=== PATIENT | male | born 1990 | race Caucasian/White ===

== ENCOUNTER 2022-06-10 16:25 | Emergency (ER) | payer BC ==
[2022-06-10 16:46] VITALS: RESP 18; TEMP 97.8
[2022-06-10] MEDS ORDERED: SODIUM CHLORIDE 0.9% 1,000 ML IV STA (17:00)
[2022-06-10] MEDS ORDERED: DEXAMETHASONE SOD PHOSPHATE 10 MG/ML 1 ML VIAL IV STA (17:00)
[2022-06-10] MEDS ORDERED: diphenhydrAMINE 50 MG/ML 1 ML VIAL IVP STA (17:00)
[2022-06-10] MEDS ORDERED: KETOROLAC 15 MG/ML 1 ML VIAL IVP STA (17:00)
[2022-06-10] MEDS ORDERED: PROCHLORPERAZINE INJ 10 MG/2 ML VIAL IVP STA (17:01)
--- NOTE | 2022-06-10 18:26 | ED ---
General Adult HPI - General Chief complaint: Headache Stated complaint: Blurred vision, Dizzy Time Seen by Provider: 06/10/22 16:50 Source: patient, family Mode of arrival: ambulatory Limitations: no limitations - History of Present Illness Initial comments: This is a 31-year-old male with a past medical history including anxiety, hypertension and previous migraine headaches presents emergency Department with a migraine headache. The patient stated that starting at 11 AM, he started to have a circumferential headache associated with lightheadedness and blurry vision. The patient has stated that he was seen in the emergency department for a similar episode on Wednesday at which point he did well. The patient had been on different blood pressure medications over the last several months and has been working with his primary care physician. The patient was concerned because he had some blurry vision today speaking to the emergency department. The patient only uses Excedrin for his migraines. The patient stated that he only had some minor blurry vision but stated that this was his baseline for his migraines. The patient was resting comfortably and was able to answer all questions appropriately. - Related Data Home Medications Medication Instructions Recorded Confirmed Ferrous Sulfate [Feosol] 325 mg PO DAILY 06/08/22 06/10/22 Multivitamins, Thera [Multivitamin 1 tab PO DAILY 06/08/22 06/10/22 (formulary)] Propranolol [Inderal] 20 mg PO DAILY 06/08/22 06/10/22 clonazePAM 2 mg PO DAILY@1700 06/08/22 06/10/22 clonazePAM 4 mg PO QAM 06/08/22 06/10/22 lisinopriL [Zestril] 10 mg PO DAILY 06/08/22 06/10/22 Allergies Allergy/AdvReac Type Severity Reaction Status Date / Time Penicillins Allergy Anaphylaxis Verified 06/10/22 18:02 & Full Body Hives Review of Systems ROS Statement: Those systems with pertinent positive or pertinent negative responses have been documented in the HPI. ROS Other: All systems not noted in ROS Statement are negative. Past Medical History Past Medical History: Hypertension History of Any Multi-Drug Resistant Organisms: None Reported Past Surgical History: Hernia Repair Past Psychological History: ADD/ADHD, Anxiety Smoking Status: Current every day smoker Past Alcohol Use History: Rare Past Drug Use History: Marijuana General Exam Limitations: no limitations General appearance: alert, in no apparent distress Head exam: Present: atraumatic, normocephalic Eye exam: Present: normal appearance, PERRL, EOMI Pupils: Present: normal accommodation ENT exam: Present: normal exam, normal oropharynx, mucous membranes moist Neck exam: Present: normal inspection, full ROM Respiratory exam: Present: normal lung sounds bilaterally Cardiovascular Exam: Present: regular rate, normal rhythm, normal heart sounds GI/Abdominal exam: Present: soft, normal bowel sounds Extremities exam: Present: normal inspection, full ROM Back exam: Present: normal inspection, full ROM Neurological exam: Present: alert, oriented X3, CN II-XII intact, normal gait Psychiatric exam: Present: normal affect, normal mood Skin exam: Present: warm, dry, intact Course Vital Signs 06/10/22 06/10/22 16:39 19:26 Temperature 97.8 F Pulse Rate 67 51 L Respiratory 18 18 Rate Blood Pressure 182/96 144/91 O2 Sat by Pulse 97 97 Oximetry Medical Decision Making - Medical Decision Making The patient was seen and evaluated numerous department. Physical exam, the patient was resting in bed without any acute distress. Vital signs on admission were stable and within normal limits. The patient was mildly hypertensive however was resting comfortably. Due to the nature of the patient's headache the setting of the patient returning to the emergency department after a workup was performed to Wednesday, no further imaging was obtained at this time. The patient did receive a headache cocktail including Toradol, Decadron, Compazine and Benadryl as well as 1 L bolus any fluid. The patient was able to rest complaining emergency department and on reevaluation had resolution of his headache. The patient was advised to follow-up with his in home sales representative for continued management of his significant hypertension. The patient's blood pressure did stabilize on repeat in the emergency department. The patient was deemed stable for discharge. The patient was advised to follow-up [facility] get worsening symptoms develop his primary care physician for continued headache treatment. The patient was agreeable to this and both his and himself at all depressions answered appropriately. The patient was discharged home in stable condition. Critical Care Time Critical Care Time: Yes Total Critical Care Time: 32 Disposition Clinical Impression: Headache, Hypertension Disposition: HOME SELF-CARE Condition: Stable Instructions (If sedation given, give patient instructions): Acute Headache (ED) Is patient prescribed a controlled substance at d/c from ED?: No Referrals: Kurtis Meyer DO [Primary Care Provider] - 1-2 days Time of Disposition: 15:30
[2022-06-10 19:27] VITALS: BP 144/91; PULSE 51
== END 2022-06-10 19:49 | disposition home or self-care (01) ==
LOC: EC 16:25
DX: G43.909 Migraine, unspecified, not intractable, without status migrainosus (principal); I10 Essential (primary) hypertension; F41.9 Anxiety disorder, unspecified; F17.200 Nicotine dependence, unspecified, uncomplicated; F12.90 Cannabis use, unspecified, uncomplicated; Z88.0 Allergy status to penicillin
CPT/HCPCS: 99284; 96374; 96375 ×3; 96361; J1200; J0780; J1100; J1885

== ENCOUNTER 2022-08-13 08:54 | Emergency (ER) | payer OTHER ==
[2022-08-13] MEDS ORDERED: NITROGLYCERIN OINT 1 INCH/GM PACKET TOPICAL STA (09:18)
[2022-08-13] MEDS ORDERED: ASPIRIN 81 MG PO STA (09:18)
[2022-08-13] MEDS ORDERED: LORazepam 2 MG/ML INJ IV STA (09:19)
--- NOTE | 2022-08-13 09:21 | ED ---
General Adult HPI - General Chief complaint: Chest Pain Stated complaint: Chest pain Time Seen by Provider: 08/13/22 09:13 Source: patient, RN notes reviewed Mode of arrival: ambulatory Limitations: no limitations - History of Present Illness Initial comments: Patient is a pleasant 31-year-old male presenting to the emergency department with concerns of chest discomfort. Onset of symptoms was when he woke this morning around 6. Patient normally is on clonazepam daily however has been off for the past 3 days secondary to difficulty refilling it. Patient has had chest discomfort similar to this approximately 3 or 4 times. Patient does have some minimal associated dyspnea. Symptoms do worsen with deep breath. There is some radiation towards the left arm. No nausea. No diaphoresis. - Related Data Home Medications Medication Instructions Recorded Confirmed Ferrous Sulfate [Feosol] 325 mg PO DAILY 06/08/22 08/13/22 Multivitamins, Thera [Multivitamin 1 tab PO DAILY 06/08/22 08/13/22 (formulary)] Propranolol [Inderal] 20 mg PO BID 06/08/22 08/13/22 clonazePAM 2 mg PO TID PRN 06/08/22 08/13/22 lisinopriL [Zestril] 10 mg PO DAILY 06/08/22 08/13/22 SUMAtriptan succinate [Imitrex] 25 mg PO BID PRN 08/13/22 08/13/22 Topiramate [Topamax] 25 mg PO DAILY 08/13/22 08/13/22 Allergies Allergy/AdvReac Type Severity Reaction Status Date / Time Penicillins Allergy Anaphylaxis Verified 08/13/22 11:01 & Full Body Hives Review of Systems ROS Statement: Those systems with pertinent positive or pertinent negative responses have been documented in the HPI. ROS Other: All systems not noted in ROS Statement are negative. Constitutional: Denies: fever Eyes: Denies: eye pain ENT: Denies: ear pain Respiratory: Denies: cough Cardiovascular: Reports: as per HPI, chest pain Endocrine: Denies: fatigue Gastrointestinal: Denies: abdominal pain Genitourinary: Denies: dysuria Musculoskeletal: Denies: back pain Skin: Denies: rash Neurological: Denies: weakness Past Medical History Past Medical History: Hypertension History of Any Multi-Drug Resistant Organisms: None Reported Past Surgical History: Hernia Repair Past Psychological History: ADD/ADHD, Anxiety Smoking Status: Current every day smoker Past Alcohol Use History: Rare Past Drug Use History: Marijuana General Exam Limitations: no limitations General appearance: alert, in no apparent distress Head exam: Present: normocephalic Eye exam: Present: normal appearance Neck exam: Present: normal inspection Respiratory exam: Present: normal lung sounds bilaterally Cardiovascular Exam: Present: regular rate, normal rhythm, normal heart sounds Expanded Peripheral pulses: 2+: Radial (R), Radial (L), Posterior Tibialis (R), Posterior Tibialis (L), Dorsalis Pedis (R), Dorsalis Pedis (L) GI/Abdominal exam: Present: soft. Absent: tenderness Extremities exam: Present: normal inspection. Absent: pedal edema, calf tenderness Neurological exam: Present: alert Psychiatric exam: Present: normal affect, normal mood Skin exam: Present: normal color Course Vital Signs 08/13/22 08/13/22 08/13/22 09:07 10:11 10:36 Temperature 98.5 F Pulse Rate 66 51 L Respiratory 20 18 Rate Blood Pressure 184/129 141/97 Blood Pressure 147/92 [Left Arm] Blood Pressure 144/90 [Right Arm] O2 Sat by Pulse 99 100 Oximetry EKG Findings - EKG Results: EKG: interpreted by ERMD, sinus rhythm, normal axis, normal QRS, normal ST/T Medical Decision Making - Medical Decision Making Was pt. sent in by a medical professional or institution (SIRISHA Swanson, MID LEVEL GAME DESIGNER, urgent care, hospital, or prison...) When possible be specific @ -No Did you speak to anyone other than the patient for history (EMS, parent, family, police, friend...)? What history was obtained from this source @ -No Did you review nursing and triage notes (agree or disagree)? Why? @ -I reviewed and agree with nursing and triage notes Were old charts reviewed (outside hosp., previous admission, EMS record, old EKG, old radiological studies, urgent care reports/EKG's, prison records)? Report findings @ -No old charts were reviewed Differential Diagnosis (chest pain, altered mental status, abdominal pain women, abdominal pain men, vaginal bleeding, weakness, fever, dyspnea, syncope, headache, dizziness, GI bleed, back pain, seizure, CVA, palpatations, mental health)? @ -Differential Chest Pain: Stable Angina, Unstable Angina, STEMI, NSTEMI Aortic Dissection, Pneumothorax, Musculoskeletal, Esophageal Spasm GERD, Cholecystitis, Pancreatitis, Zoster, this is not meant to be an all-inclusive list. EKG interpreted by me (3pts min.). @ -As above X-rays interpreted by me (1pt min.). @ -Chest x-ray shows no acute process CT interpreted by me (1pt min.). @ -None done U/S interpreted by me (1pt. min.). @ -None done What testing was considered but not performed or refused? (CT, X-rays, U/S, labs)? Why? @ -None What meds were considered but not given or refused? Why? @ -None Did you discuss the management of the patient with other professionals (professionals i.e. , PA, MID LEVEL GAME DESIGNER, lab, RT, psych nurse, social problems specialist, pre press manager, teacher, security flex utility officer, gearcase assembler)? Give summary @ -No Was smoking cessation discussed for >3mins.? @ -No Was critical care preformed (if so, how long)? @ -No Were there social determinants of health that impacted care today? How? (Homelessness, low income, unemployed, alcoholism, drug addiction, transportation, low edu. Level, literacy, decrease access to med. care, long term, rehab)? @ -No Was there de-escalation of care discussed even if they declined (Discuss DNR or withdrawal of care, Hospice)? DNR status @ -No What co-morbidities impacted this encounter? (DM, HTN, Smoking, COPD, CAD, Cancer, CVA, ARF, Chemo, Hep., AIDS, mental health diagnosis, sleep apnea, morbid obesity)? @ -None Was patient admitted / discharged? Hospital course, mention meds given and route, prescriptions, significant lab abnormalities, going to OR and other pertinent info. @ -Patient reevaluated and resting comfortably in bed. Patient symptom-free following Ativan and significant improvement of blood pressure. Patient updated on results and need for follow-up as well as to call regarding his prescription. Undiagnosed new problem with uncertain prognosis? @ -No Drug Therapy requiring intensive monitoring for toxicity (Heparin, Nitro, Insulin, Cardizem)? @ -No Were any procedures done? @ -No Diagnosis/symptom? @ -Anxiety, chest pain, hypertension Acute, or Chronic, or Acute on Chronic? @ -Acute on chronic Uncomplicated (without systemic symptoms) or Complicated (systemic symptoms)? @ -Uncomplicated Side effects of treatment? @ -No Exacerbation, Progression, or Severe Exacerbation? @ -Exacerbation Poses a threat to life or bodily function? How? (Chest pain, [place], [place], pneumonia, PE, COPD, DKA, ARF, appy, cholecystitis, CVA, Diverticulitis, Homicidal, Suicidal, threat to staff... and all critical care pts) @ -No - Lab Data Result diagrams: 08/13/22 09:08/13/22 09: Lab Results 08/13/22 08/13/22 08/13/22 Range/Units : 09:17 04: WBC 7.3 (3.8-10.6) k/uL RBC 5.43 (4.30-5.90) m/uL Hgb 14.4 (13.0-17.5) gm/dL Hct 41.7 (39.0-53.0) % MCV 76.7 L (80.0-100.0) fL MCH 26.4 (25.0-35.0) pg MCHC 34.5 (31.0-37.0) g/dL RDW 16.7 H (11.5-15.5) % Plt Count 152 (150-450) k/uL MPV 11.0 Neutrophils % 59 % Lymphocytes % 32 % Monocytes % 5 % Eosinophils % 2 % Basophils % 1 % Neutrophils # 4.3 (1.3-7.7) k/uL Lymphocytes # 2.3 (1.0-4.8) k/uL Monocytes # 0.4 (0-1.0) k/uL Eosinophils # 0.1 (0-0.7) k/uL Basophils # 0.1 (0-0.2) k/uL Anisocytosis Slight Microcytosis Slight PT 9.9 (9.0-12.0) sec INR 0.9 (<1.2) APTT 26.3 (22.0-30.0) sec D-Dimer <0.17 (<0.60) mg/L FEU Sodium 142 (137-145) mmol/L Potassium 3.8 (3.5-5.1) mmol/L Chloride 112 H (98-107) mmol/L Carbon Dioxide 20 L (22-30) mmol/L Anion Gap 10 mmol/L BUN 12 (9-20) mg/dL Creatinine 0.58 L (0.66-1.25) mg/dL Est GFR (CKD-EPI)AfAm >90 (>60 ml/min/1.73 sqM) Est GFR (CKD-EPI)NonAf >90 (>60 ml/min/1.73 sqM) Glucose 98 (74-99) mg/dL Calcium 9.0 (8.4-10.2) mg/dL Magnesium 1.9 (1.6-2.3) mg/dL Total Bilirubin 0.4 (0.2-1.3) mg/dL AST 34 (17-59) U/L ALT 36 (4-49) U/L Alkaline Phosphatase 120 (38-126) U/L Troponin I (0.000-0.034) ng/mL Total Protein 7.3 (6.3-8.2) g/dL Albumin 4.5 (3.5-5.0) g/dL 08/13/22 Range/Units 09:23 WBC (3.8-10.6) k/uL RBC (4.30-5.90) m/uL Hgb (13.0-17.5) gm/dL Hct (39.0-53.0) % MCV (80.0-100.0) fL MCH (25.0-35.0) pg MCHC (31.0-37.0) g/dL RDW (11.5-15.5) % Plt Count (150-450) k/uL MPV Neutrophils % % Lymphocytes % % Monocytes % % Eosinophils % % Basophils % % Neutrophils # (1.3-7.7) k/uL Lymphocytes # (1.0-4.8) k/uL Monocytes # (0-1.0) k/uL Eosinophils # (0-0.7) k/uL Basophils # (0-0.2) k/uL Anisocytosis Microcytosis PT (9.0-12.0) sec INR (<1.2) APTT (22.0-30.0) sec D-Dimer (<0.60) mg/L FEU Sodium (137-145) mmol/L Potassium (3.5-5.1) mmol/L Chloride (98-107) mmol/L Carbon Dioxide (22-30) mmol/L Anion Gap mmol/L BUN (9-20) mg/dL Creatinine (0.66-1.25) mg/dL Est GFR (CKD-EPI)AfAm (>60 ml/min/1.73 sqM) Est GFR (CKD-EPI)NonAf (>60 ml/min/1.73 sqM) Glucose (74-99) mg/dL Calcium (8.4-10.2) mg/dL Magnesium (1.6-2.3) mg/dL Total Bilirubin (0.2-1.3) mg/dL AST (17-59) U/L ALT (4-49) U/L Alkaline Phosphatase (38-126) U/L Troponin I <0.012 (0.000-0.034) ng/mL Total Protein (6.3-8.2) g/dL Albumin (3.5-5.0) g/dL Disposition Clinical Impression: Chest pain, Anxiety, Hypertension Disposition: HOME SELF-CARE Condition: Stable Instructions (If sedation given, give patient instructions): Chest Pain (ED), Anxiety (ED), Hypertension (ED) Additional Instructions: Please do follow-up with your primary care physician in the next one to 2 days for recheck. Return for chest pain, difficulty breathing, increased blood press ure, worsening or changing symptoms or any other concerns. Please have your primary care physician ensure you're medications have been ordered. Is patient prescribed a controlled substance at d/c from ED?: No Referrals: Kurtis Meyer DO [Primary Care Provider] - 1-2 days Time of Disposition: 11:36
[2022-08-13 09:43] LABS: ALT 36 U/L (4-49); AST 34 U/L (17-59); African American GFR (CKD) >90 (>60 ml/min/1.73 sqM); Albumin 4.5 g/dL (3.5-5.0); Alkaline Phosphatase 120 U/L (38-126); Anion Gap 10 mmol/L; Blood Urea Nitrogen 12 mg/dL (9-20); Carbon Dioxide 20 mmol/L (22-30); Chloride 112 mmol/L (98-107); Glucose 98 mg/dL (74-99); Magnesium 1.9 mg/dL (1.6-2.3); Non-African American GFR(CKD) >90 (>60 ml/min/1.73 sqM); Potassium 3.8 mmol/L (3.5-5.1); Sodium 142 mmol/L (137-145); Total Bilirubin 0.4 mg/dL (0.2-1.3); Total Protein 7.3 g/dL (6.3-8.2)
[2022-08-13 09:46] LABS: Anisocytosis Slight; Basophils # (A) 0.1 k/uL (0-0.2); Basophils % (A) 1 %; Eosinophils # (A) 0.1 k/uL (0-0.7); Eosinophils % (A) 2 %; HCT 41.7 % (39.0-53.0); HGB 14.4 gm/dL (13.0-17.5); Lymphocytes # (A) 2.3 k/uL (1.0-4.8); Lymphocytes % (A) 32 %; MCH 26.4 pg (25.0-35.0); MCHC 34.5 g/dL (31.0-37.0); MCV 76.7 fL (80.0-100.0); Microcytosis Slight; Monocytes # (A) 0.4 k/uL (0-1.0); Monocytes % (A) 5 %; Neutrophils # (A) 4.3 k/uL (1.3-7.7); Neutrophils % (A) 59 %; Platelet Count 152 k/uL (150-450); RBC 5.43 m/uL (4.30-5.90); RDW 16.7 % (11.5-15.5); WBC 7.3 k/uL (3.8-10.6)
--- NOTE | 2022-08-13 09:46 | XR ---
EXAMINATION TYPE: XR chest 2V DATE OF EXAM: 08/13/2022 COMPARISON: None INDICATION: Chest pain TECHNIQUE: Frontal and lateral views of the chest are obtained. FINDINGS: The heart size is normal. The pulmonary vasculature is normal. The lungs are clear. IMPRESSION: 1. No acute pulmonary process.
[2022-08-13 09:59] LABS: INR 0.9 (<1.2); Partial Thromboplastin Time 26.3 sec (22.0-30.0); Prothrombin Time 9.9 sec (9.0-12.0)
[2022-08-13 10:30] VITALS: RESP 18
[2022-08-13 12:05] VITALS: BP 138/88; PULSE 60; TEMP 98.2
== END 2022-08-13 12:07 | disposition home or self-care (01) ==
LOC: EC 08:54
DX: R07.9 Chest pain, unspecified (principal); F41.9 Anxiety disorder, unspecified; I10 Essential (primary) hypertension; F17.200 Nicotine dependence, unspecified, uncomplicated; F12.90 Cannabis use, unspecified, uncomplicated; Z88.0 Allergy status to penicillin; Z79.899 Other long term (current) drug therapy
CPT/HCPCS: 36415; 93005; 85379; 80053; 83735; 84484; 85025; 85610; 85730; 71046; 99285; 96374; J2060

== ENCOUNTER → 2022-10-21 | Outpatient (CLI) | payer MEDICAID ==
--- NOTE | 2022-10-22 06:22 | MR ---
EXAMINATION TYPE: MR brain wo/w con DATE OF EXAM: 10/21/2022 COMPARISON: NONE HISTORY: Migraines TECHNIQUE: Multiplanar, multisequence images of the brain and brainstem is performed without and with IV contras t, utilizing 6.5 mL intravenous Gadavist . FINDINGS: Diffusion weighted images demonstrate no evidence of a recent infarct or other diffusion ab normality. There is no extra-axial fluid collection or significant white matter signal abnormality. The ventricular system and cisternal spaces are normal in size and appearance. The brain volume is age appropriate. Midline structures demonstrate normal morphology. The craniocervical junction appears within normal limits. Post contrast images demonstrate no abnormal enhancement. The dural venous sinuses appear pa tent. Mild mucosal thickening inferior maxillary and ethmoid sinuses. Globes are intact bilaterally. Nasal septum is deviated to right of midline. IMPRESSION: Mild to minimal chronic paranasal sinus disease.
== END | disposition home or self-care (01) ==
LOC: RADMRIMAIN 21:00
PROVIDERS: ATTEND Family Medicine
DX: J32.8 Other chronic sinusitis (principal); G43.109 Migraine with aura, not intractable, without status migrainosus
CPT/HCPCS: 70553; A9585

== ENCOUNTER 2022-10-26 17:16 | Emergency (ER) | payer MEDICAID ==
[2022-10-26 17:49] VITALS: PULSE 77; RESP 20; TEMP 97.8
--- NOTE | 2022-10-26 18:06 | ED ---
General Adult HPI - General Chief complaint: Wound/Laceration Stated complaint: rt finger laceration Time Seen by Provider: 10/26/22 17:58 Source: patient Mode of arrival: ambulatory Limitations: no limitations - History of Present Illness Initial comments: Patient is a 31-year-old male who presents to the emergency department with cut on right fifth finger. Patient states he cut it while working on a car today. He denies any pain No issues with movement. Last tetanus in 2005. - Related Data Home Medications Medication Instructions Recorded Confirmed Ferrous Sulfate [Feosol] 325 mg PO DAILY 06/08/22 08/13/22 Multivitamins, Thera [Multivitamin 1 tab PO DAILY 06/08/22 08/13/22 (formulary)] Propranolol [Inderal] 20 mg PO BID 06/08/22 08/13/22 clonazePAM 2 mg PO TID PRN 06/08/22 08/13/22 lisinopriL [Zestril] 10 mg PO DAILY 06/08/22 08/13/22 SUMAtriptan succinate [Imitrex] 25 mg PO BID PRN 08/13/22 08/13/22 Topiramate [Topamax] 25 mg PO DAILY 08/13/22 08/13/22 Allergies Allergy/AdvReac Type Severity Reaction Status Date / Time Penicillins Allergy Anaphylaxis Verified 10/26/22 17:49 & Full Body Hives Review of Systems ROS Statement: Those systems with pertinent positive or pertinent negative responses have been documented in the HPI. ROS Other: All systems not noted in ROS Statement are negative. Past Medical History Past Medical History: Hypertension History of Any Multi-Drug Resistant Organisms: None Reported Past Surgical History: Hernia Repair Past Psychological History: ADD/ADHD, Anxiety Smoking Status: Current every day smoker Past Alcohol Use History: Rare Past Drug Use History: Marijuana General Exam Limitations: no limitations General appearance: alert, in no apparent distress Head exam: Present: atraumatic, normocephalic, normal inspection Respiratory exam: Present: normal lung sounds bilaterally. Absent: respiratory distress, wheezes, rales, rhonchi, stridor Cardiovascular Exam: Present: regular rate, normal rhythm, normal heart sounds. Absent: systolic murmur, diastolic murmur, rubs, gallop, clicks Neurological exam: Present: alert, oriented X3, CN II-XII intact Psychiatric exam: Present: normal affect, normal mood Skin exam: Present: warm, dry, intact, normal color, other (Abrasion to right pinky finger over PIP joint. No laceration. Capillary refill < 2 seconds. Full range of motion. Sensation intact). Absent: rash Course Vital Signs 10/26/22 10/26/22 10/26/22 17:47 18:09 18:17 Temperature 97.8 F Pulse Rate 77 Respiratory 20 Rate Blood Pressure 170/103 181/111 166/120 O2 Sat by Pulse 97 Oximetry Medical Decision Making - Medical Decision Making Was pt. sent in by a medical professional or institution (, SIRISHA, BUSINESS SYSTEMS ARCHITECT, urgent care, hospital, or halfway...) When possible be specific @ -[No] Did you speak to anyone other than the patient for history (EMS, parent, family, police, friend...)? What history was obtained from this source @ -[No] Did you review nursing and triage notes (agree or disagree)? Why? @ -[I reviewed and agree with nursing and triage notes] Were old charts reviewed (outside hosp., previous admission, EMS record, old EKG, old radiological studies, urgent care reports/EKG's, halfway records)? Report findings @ -[No old charts were reviewed] Differential Diagnosis (chest pain, altered mental status, abdominal pain women, abdominal pain men, vaginal bleeding, weakness, fever, dyspnea, syncope, headache, dizziness, GI bleed, back pain, seizure, CVA, palpatations, mental health)? @ -Abrasion, laceration, fracture EKG interpreted by me (3pts min.). @ -[As above] X-rays interpreted by me (1pt min.). @ -[None done] CT interpreted by me (1pt min.). @ -[None done] U/S interpreted by me (1pt. min.). @ -[None done] What testing was considered but not performed or refused? (CT, X-rays, U/S, labs)? Why? @ -[None] What meds were considered but not given or refused? Why? @ -[None] Did you discuss the management of the patient with other professionals (professionals i.e. SIRISHA Swanson, BUSINESS SYSTEMS ARCHITECT, lab, RT, psych nurse, social work case manager, supervisor photocomposition, teacher, community resource officer, special education case manager)? Give summary @ -[No] Was smoking cessation discussed for >3mins.? @ -[No] Was critical care preformed (if so, how long)? @ -[No] Were there social determinants of health that impacted care today? How? (Homelessness, low income, unemployed, alcoholism, drug addiction, transportation, low edu. Level, literacy, decrease access to med. care, long-term, rehab)? @ -[No] Was there de-escalation of care discussed even if they declined (Discuss DNR or withdrawal of care, Hospice)? DNR status @ -[No] What co-morbidities impacted this encounter? (DM, HTN, Smoking, COPD, CAD, Cancer, CVA, ARF, Chemo, Hep., AIDS, mental health diagnosis, sleep apnea, morbid obesity)? @ -[None] Was patient admitted / discharged? Hospital course, mention meds given and route, prescriptions, significant lab abnormalities, going to OR and other pertinent info. @ -Patient presenting for evaluation of cut on right pinky finger. There is no laceration. Closure is not indicated. Tetanus updated. Patient remained hypertensive during his visit. Patient has history of hypertension, currently on Lopressor, atenolol, clonidine. States he has been taking his medication as directed. Patient states he has history of white coat hypertension. States his anxiety makes his blood pressure go up and he is currently feeling anxious. He denies chest pain, shortness of breath, headache. He checks his blood pressure on which is usually in the 150s/90s. Patient to continue checking blood pressure home and follow up with his primary care provider. Wound education discussed in detail Undiagnosed new problem with uncertain prognosis? @ -[No] Drug Therapy requiring intensive monitoring for toxicity (Heparin, Nitro, Insulin, Cardizem)? @ -[No] Were any procedures done? @ -[No] Diagnosis/symptom? @ -[Abrasion, high blood pressure Acute, or Chronic, or Acute on Chronic? @ -Acute Uncomplicated (without systemic symptoms) or Complicated (systemic symptoms)? @ -Uncomplicated Side effects of treatment? @ -[No] Exacerbation, Progression, or Severe Exacerbation? @ -[No] Poses a threat to life or bodily function? How? (Chest pain, [place], [place], pneumonia, PE, COPD, DKA, ARF, appy, cholecystitis, CVA, Diverticulitis, Homicidal, Suicidal, threat to staff... and all critical care pts) @ -[No] Dr. Marion is my attending Disposition Clinical Impression: Abrasion, High blood pressure Disposition: HOME SELF-CARE Condition: Good Instructions (If sedation given, give patient instructions): Abrasion (ED) Additional Instructions: Leave wound uncovered. Keep wound clean and dry. Wash with a mild soap. Take Tylenol or anti-inflammatories such as Motrin for pain. Follow-up with primary care provider in 1-2 days. Please keep checking blood pressure at home and discuss this with primary care provider as your blood pressure was elevated in the emergency department today. Report back to the emergency department if you experience new, concerning, or worsening symptoms. Is patient prescribed a controlled substance at d/c from ED?: No Referrals: Kurtis Meyer DO [Primary Care Provider] - 1-2 days
[2022-10-26] MEDS ORDERED: DIPH,PERTUS(ACELL)TETVAC-LF 0.5 ML VIAL IM ONE (18:07)
[2022-10-26 18:20] VITALS: BP 166/120
== END 2022-10-26 18:25 | disposition home or self-care (01) ==
LOC: EC 17:16
DX: S60.416A Abrasion of right little finger, initial encounter (principal); I10 Essential (primary) hypertension; F17.200 Nicotine dependence, unspecified, uncomplicated; F12.90 Cannabis use, unspecified, uncomplicated; Z23 Encounter for immunization; Z88.0 Allergy status to penicillin; Z79.899 Other long term (current) drug therapy; W26.8XXA Contact with other sharp object(s), not elsewhere classified, initial encounter
CPT/HCPCS: 90471; 90715; 99282

== ENCOUNTER 2023-01-15 02:11 | Emergency (ER) | payer MEDICAID ==
[2023-01-15 03:26] LABS: ALT 20 U/L (4-49); AST 27 U/L (17-59); African American GFR (CKD) >90 (>60 ml/min/1.73 sqM); Albumin 4.1 g/dL (3.5-5.0); Alkaline Phosphatase 101 U/L (38-126); Amylase 53 U/L (30-110); Anion Gap 9 mmol/L; Blood Urea Nitrogen 11 mg/dL (9-20); Calcium 9.1 mg/dL (8.4-10.2); Carbon Dioxide 20 mmol/L (22-30); Chloride 112 mmol/L (98-107); Glucose 117 mg/dL (74-99); Lipase 78 U/L (23-300); Non-African American GFR(CKD) >90 (>60 ml/min/1.73 sqM); Potassium 3.6 mmol/L (3.5-5.1); Sodium 141 mmol/L (137-145); Total Bilirubin 0.5 mg/dL (0.2-1.3); Total Protein 6.9 g/dL (6.3-8.2)
[2023-01-15 03:31] LABS: Basophils % (A) 0 %; Eosinophils # (A) 0.2 k/uL (0-0.7); Eosinophils % (A) 3 %; Lymphocytes # (A) 2.8 k/uL (1.0-4.8); Lymphocytes % (A) 36 %; MCH 29.3 pg (25.0-35.0); MCHC 34.8 g/dL (31.0-37.0); MCV 84.1 fL (80.0-100.0); Mean Platelet Volume 10.6; Monocytes # (A) 0.5 k/uL (0-1.0); Monocytes % (A) 6 %; Neutrophils # (A) 4.3 k/uL (1.3-7.7); Neutrophils % (A) 54 %; Platelet Count 143 k/uL (150-450); RBC 5.47 m/uL (4.30-5.90)
--- NOTE | 2023-01-15 04:51 | XR ---
EXAM: XR Abdomen, 1 View CLINICAL HISTORY: ITS.REASON XR Reason: abdominal pain TECHNIQUE: Frontal supine view of the abdomen/pelvis. COMPARISON: No relevant prior studies available. FINDINGS: Gastrointestinal tract: No dilation. Increased stool burden Bones/joints: No acute fracture. No dislocation. IMPRESSION: No acute findings.
[2023-01-15] MEDS ORDERED: ONDANSETRON 4 MG/2 ML VIAL IVP STA (05:20)
[2023-01-15] MEDS ORDERED: MORPHINE SULFATE 4 MG/ML SYRINGE IVP STA (05:20)
--- NOTE | 2023-01-15 07:13 | CT ---
EXAMINATION TYPE: CT abdomen pelvis w con DATE OF EXAM: 01/15/2023 COMPARISON: None HISTORY: Right upper quadrant pain CONTRAST: CT scan of the abdomen and pelvis is performed without Oral Contrast and with IV Contrast, patient in jected with 100 mL of Isovue 300. FINDINGS: LUNG BASES-: No visible nodule. No infiltrate. LIVER/GB: No calcified gallstones. Mild hepatomegaly with underlying hepatic steatosis. No space o ccupying hepatic lesion. Biliary tree is of normal caliber. PANCREAS: No inflammation. No distinct mass. SPLEEN: No splenic enlargement. No lesion seen. ADRENALS: No nodule. No thickening. KIDNEYS/BLADDER: No hydronephrosis. No nephrolithiasis. No distinct renal mass. Urinary bladder g rossly unremarkable. BOWEL: Normal appendix. Normal bowel caliber. No inflammation. GENITAL ORGANS: No gross abnormality. LYMPH NODES: No greater than 1cm abdominal or pelvic lymph nodes are appreciated. AORTA: No significant abnormality. OSSEOUS STRUCTURES: No significant abnormality is seen. OTHER: No significant additional abnormality is seen. IMPRESSION: 1. No significant abnormality to account for the patient's symptoms. 2. Hepatomegaly with mild hepatic steatosis.
[2023-01-15 07:23] LABS: Appearance,Urine Clear (Clear); Bilirubin,Urine Negative (Negative); Blood,Urine Negative (Negative); Color,Urine Light Yellow; Glucose,Urine (UA) Negative (Negative); Ketones,Urine Negative (Negative); Leukocyte Esterase,Urine Negative (Negative); Nitrite,Urine Negative (Negative); Protein,Urine Negative (Negative); Urobilinogen,Urine <2.0 mg/dL (<2.0)
[2023-01-15 07:31] LABS: Specific Gravity,Urine >1.050 (1.001-1.035)
--- NOTE | 2023-01-15 08:02 | ED ---
General Adult HPI - General Source: patient Mode of arrival: ambulatory Limitations: no limitations <Cristal Schuler - Last Filed: 01/15/23 07:57> <Stepan Crowe - Last Filed: 01/15/23 09:17> - General Chief complaint: Abdominal Pain Stated complaint: Abdominal Pain Time Seen by Provider: 01/15/23 02:30 - History of Present Illness Initial comments: 38-year-old male with past medical history of hypertension who presents to emergency room with right upper quadrant pain. States he was at work when his pain began. He reports that he can't move, bend, cough without having significant pain. He denies any inciting trauma. No history of similar pain in the past. He has associated nausea without vomiting. Pain is constant and 8 out of 10. Has not taken anything for the pain yet. No peptic ulcer history. Denies diarrhea, constant, black or bloody stools. No urinary complaints. No history of abdominal surgeries. No other alleviating, precipitating or modifying factors (rCistal Schuler) - Related Data Home Medications Medication Instructions Recorded Confirmed Ferrous Sulfate [Feosol] 325 mg PO DAILY 06/08/22 08/13/22 Multivitamins, Thera [Multivitamin 1 tab PO DAILY 06/08/22 08/13/22 (formulary)] Propranolol [Inderal] 20 mg PO BID 06/08/22 08/13/22 clonazePAM 2 mg PO TID PRN 06/08/22 08/13/22 lisinopriL [Zestril] 10 mg PO DAILY 06/08/22 08/13/22 SUMAtriptan succinate [Imitrex] 25 mg PO BID PRN 08/13/22 08/13/22 Topiramate [Topamax] 25 mg PO DAILY 08/13/22 08/13/22 Previous Rx's Medication Instructions Recorded HYDROcodone/APAP 5-325MG [Drain 1 tab PO Q6HR PRN 3 Days #12 tab 01/15/23 5-325] Allergies Allergy/AdvReac Type Severity Reaction Status Date / Time Penicillins Allergy Anaphylaxis Verified 01/15/23 02:28 & Full Body Hives Review of Systems ROS Other: All systems not noted in ROS Statement are negative. <Cristal Schuler - Last Filed: 01/15/23 07:57> ROS Other: All systems not noted in ROS Statement are negative. <Stepan Crowe - Last Filed: 01/15/23 09:17> ROS Statement: Those systems with pertinent positive or pertinent negative responses have been documented in the HPI. Past Medical History Past Medical History: Hypertension History of Any Multi-Drug Resistant Organisms: None Reported Past Surgical History: Hernia Repair Past Psychological History: ADD/ADHD, Anxiety Smoking Status: Current every day smoker Past Alcohol Use History: Rare Past Drug Use History: Marijuana <Cristal Schuler - Last Filed: 01/15/23 07:57> General Exam Limitations: no limitations General appearance: alert, in no apparent distress Head exam: Present: atraumatic, normocephalic, normal inspection Eye exam: Present: normal appearance, PERRL, EOMI. Absent: scleral icterus, conjunctival injection, periorbital swelling ENT exam: Present: normal exam, mucous membranes moist Neck exam: Present: normal inspection. Absent: tenderness, meningismus, lymphadenopathy Respiratory exam: Present: normal lung sounds bilaterally. Absent: respiratory distress, wheezes, rales, rhonchi, stridor Cardiovascular Exam: Present: regular rate, normal rhythm, normal heart sounds. Absent: systolic murmur, diastolic murmur, rubs, gallop, clicks GI/Abdominal exam: Present: soft, tenderness (Right upper quadrant), normal bowel sounds. Absent: distended, guarding, rebound, rigid Extremities exam: Present: normal inspection, full ROM, normal capillary refill. Absent: tenderness, pedal edema, joint swelling, calf tenderness Back exam: Present: normal inspection Neurological exam: Present: alert, oriented X3, CN II-XII intact Psychiatric exam: Present: normal affect, normal mood Skin exam: Present: warm, dry, intact, normal color. Absent: rash <Cristal Schuler - Last Filed: 01/15/23 07:57> Course Vital Signs 01/15/23 01/15/23 01/15/23 02:24 04:00 04:14 Temperature 97.6 F Pulse Rate 77 71 Respiratory 18 18 Rate Blood Pressure 157/92 156/82 O2 Sat by Pulse 97 96 Oximetry 01/15/23 01/15/23 01/15/23 06:08 07:11 08:13 Temperature Pulse Rate 52 L Respiratory 19 Rate Blood Pressure 159/96 159/96 145/101 O2 Sat by Pulse 95 96 97 Oximetry Medical Decision Making - Lab Data Result diagrams: 01/15/23 03:05 01/15/23 03:05 <Cristal Schuler - Last Filed: 01/15/23 07:57> - Lab Data Result diagrams: 01/15/23 03:05 01/15/23 03:05 <Stepan Crowe - Last Filed: 01/15/23 09:17> - Medical Decision Making Was pt. sent in by a medical professional or institution (, PA, ROTARY DRILL OPERATOR, urgent care, hospital, or group home...) When possible be specific @ -No Did you speak to anyone other than the patient for history (EMS, parent, family, police, friend...)? What history was obtained from this source @ -Spoke with the patient's Did you review nursing and triage notes (agree or disagree)? Why? @ -I reviewed and agree with nursing and triage notes Were old charts reviewed (outside hosp., previous admission, EMS record, old EKG, old radiological studies, urgent care reports/EKG's, group home records)? Report findings @ -No old charts were reviewed Differential Diagnosis (chest pain, altered mental status, abdominal pain women, abdominal pain men, vaginal bleeding, weakness, fever, dyspnea, syncope, headache, dizziness, GI bleed, back pain, seizure, CVA, palpatations, mental health, musculoskeletal)? @ -Differential Abdominal Pain Men: Appendicitis, cholecystitis, diverticulosis, ischemic bowel, pancreatitis, hepatitis, UTI, gastroenteritis, AAA, incarcerated hernia, bowel obstruction, constipation, inflammatory bowel, hepatitis, peptic ulcer disease, splenic infarction, perforated viscus, testicular torsion, this is not meant to be an all-inclusive list EKG interpreted by me (3pts min.). @ -Not done X-rays interpreted by me (1pt min.). @ -No acute process CT interpreted by me (1pt min.). @ -No acute process U/S interpreted by me (1pt. min.). @ -Awaiting images What testing was considered but not performed or refused? (CT, X-rays, U/S, lab s)? Why? @ -None What meds were considered but not given or refused? Why? @ -None Did you discuss the management of the patient with other professionals (professionals i.e. DrRosana, PA, ROTARY DRILL OPERATOR, lab, RT, psych nurse, social research assistant, insurance sales specialist, teacher, licensed loan officer assistant, supervisor case loading)? Give summary @ -Spoke with Dr. Baig who is requesting gallbladder us Was smoking cessation discussed for >3mins.? @ -No Was critical care preformed (if so, how long)? @ -No Were there social determinants of health that impacted care today? How? (Homelessness, low income, unemployed, alcoholism, drug addiction, transportation, low edu. Level, literacy, decrease access to med. care, skilled nursing, rehab)? @ -Patient does drink etoh daily Was there de-escalation of care discussed even if they declined (Discuss DNR or withdrawal of care, Hospice)? DNR status @ -No What co-morbidities impacted this encounter? (DM, HTN, Smoking, COPD, CAD, Cancer, CVA, ARF, Chemo, Hep., AIDS, mental health diagnosis, sleep apnea, morbid obesity)? @ -None Was patient admitted / discharged? Hospital course, mention meds given and route, prescriptions, significant lab abnormalities, going to OR and other pertinent info. @ -Upon arrival patient is placed into room 18. Thorough history and physical exam is performed. IV access established laboratory studies are conducted. Patient was given 4 mg of morphine for pain control and 4 mg of Zofran for nausea. Laboratory studies are reviewed and within normal limits. KUB demonstrates no acute process. This is followed with a CT of the abdomen and pelvis which demonstrates no acute process. I called and spoke with Dr. Flower. Requesting a bladder ultrasound. Patient will be signed out to Dr. Crowe at this time Undiagnosed new problem with uncertain prognosis? @ -S Drug Therapy requiring intensive monitoring for toxicity (Heparin, Nitro, Insulin, Cardizem)? @ -No Were any procedures done? @ -No Diagnosis/symptom? @ -Acute right upper quadrant pain Acute, or Chronic, or Acute on Chronic? @ -Acute Uncomplicated (without systemic symptoms) or Complicated (systemic symptoms)? @ -Complicated Side effects of treatment? @ -ALLERGIC reaction Exacerbation, Progression, or Severe Exacerbation? @ -No Poses a threat to life or bodily function? How? (Chest pain, [place], [place], pneumonia, PE, COPD, DKA, ARF, appy, cholecystitis, CVA, Diverticulitis, Homicidal, Suicidal, threat to staff... and all critical care pts) @ -No (Cristal Schuler) Patient care sent out to me by previous shift physician, Dr. Mendoza. Briefly, patient 32-year-old male past medical history of hypertension presents to the ER for right upper quadrant abdominal pain. Labs and imaging reviewed. Labs are unremarkable. CT imaging is unremarkable for any acute processes. There however is finding of hepatomegaly with mild hepatic steatosis. Patient allegedly has a history of drinking. Plan at sign up was to follow-up with pending ultrasound Ultrasound images are seen interpreted by me showing no acute processes. Radio logy report was reviewed showing no acute processes. Patient given analgesics. Disposition options were discussed. He is agreeable for discharge. Patient given some analgesics to go home with. (Stepan Crowe) - Lab Data Lab Results 01/15/23 01/15/23 01/15/23 Range/Units 03:05 03:05 06:54 WBC 8.0 (3.8-10.6) k/uL RBC 5.47 (4.30-5.90) m/uL Hgb 16.0 (13.0-17.5) gm/dL Hct 46.0 (39.0-53.0) % MCV 84.1 (80.0-100.0) fL MCH 29.3 (25.0-35.0) pg MCHC 34.8 (31.0-37.0) g/dL RDW 14.0 (11.5-15.5) % Plt Count 143 L (150-450) k/uL MPV 10.6 Neutrophils % 54 % Lymphocytes % 36 % Monocytes % 6 % Eosinophils % 3 % Basophils % 0 % Neutrophils # 4.3 (1.3-7.7) k/uL Lymphocytes # 2.8 (1.0-4.8) k/uL Monocytes # 0.5 (0-1.0) k/uL Eosinophils # 0.2 (0-0.7) k/uL Basophils # 0.0 (0-0.2) k/uL Sodium 141 (137-145) mmol/L Potassium 3.6 (3.5-5.1) mmol/L Chloride 112 H (98-107) mmol/L Carbon Dioxide 20 L (22-30) mmol/L Anion Gap 9 mmol/L BUN 11 (9-20) mg/dL Creatinine 0.46 L (0.66-1.25) mg/dL Est GFR (CKD-EPI)AfAm >90 (>60 ml/min/1.73 sqM) Est GFR (CKD-EPI)NonAf >90 (>60 ml/min/1.73 sqM) Glucose 117 H (74-99) mg/dL Calcium 9.1 (8.4-10.2) mg/dL Total Bilirubin 0.5 (0.2-1.3) mg/dL AST 27 (17-59) U/L ALT 20 (4-49) U/L Alkaline Phosphatase 101 (38-126) U/L Total Protein 6.9 (6.3-8.2) g/dL Albumin 4.1 (3.5-5.0) g/dL Amylase 53 (30-110) U/L Lipase 78 (23-300) U/L Urine Color Light Yellow Urine Appearance Clear (Clear) Urine pH 7.0 (5.0-8.0) Ur Specific [place] >1.050 H (1.001-1.035) Urine Protein Negative (Negative) Urine Glucose (UA) Negative (Negative) Urine Ketones Negative (Negative) Urine Blood Negative (Negative) Urine Nitrite Negative (Negative) Urine Bilirubin Negative (Negative) Urine Urobilinogen <2.0 (<2.0) mg/dL Ur Leukocyte Esterase Negative (Negative) Disposition <Cristal Schuler - Last Filed: 01/15/23 07:57> Is patient prescribed a controlled substance at d/c from ED?: Yes If prescribed controlled substance>3 days was MAPS reviewed?: Prescribed <3 Days Time of Disposition: 09:17 <Stepan Crowe - Last Filed: 01/15/23 09:17> Clinical Impression: Abdominal pain Disposition: HOME SELF-CARE Condition: Good Instructions (If sedation given, give patient instructions): Abdominal Pain (ED) Prescriptions: HYDROcodone/APAP 5-325MG [Drain 5-325] 1 tab PO Q6HR PRN 3 Days #12 tab PRN Reason: Severe Pain Referrals: Kurtis Meyer DO [Primary Care Provider] - 1-2 days
[2023-01-15] MEDS ORDERED: MORPHINE SULFATE 4 MG/ML SYRINGE IV STA (08:14)
[2023-01-15] MEDS ORDERED: NICOTINE 7MG/24HR PATCH TRANSDERM STA (08:19)
--- NOTE | 2023-01-15 08:41 | US ---
EXAMINATION TYPE: US gallbladder DATE OF EXAM: 01/15/2023 COMPARISON: NONE CLINICAL INDICATION: Male, 32 years old with history of ruq pain; Pain Limited exam due to bowel gas. TECHNIQUE: Multiple sonographic images of the right upper quadrant are obtained. FINDINGS: EXAM MEASUREMENTS: Liver Length: 15.6 cm Gallbladder Wall: .3 cm CBD: .2 cm Right Kidney: 10.1 x 4.8 x 3.2 cm FINANCIAL REPORTING ACCOUNTANT NOTES: Pancreas: Obscured by bowel gas Liver: wnl Gallbladder: No stones seen Evidence for sonographic Dunn's sign: No CBD: wnl Right Kidney: No hydronephrosis or masses seen IMPRESSION: No significant abnormality appreciated.
--- NOTE | 2023-01-15 09:27 | ED ---
Medical Decision Making - Lab Data Result diagrams: 01/15/23 03:05 01/15/23 03:05 Lab Results 01/15/23 01/15/23 01/15/23 Range/Units 03:05 03:05 06:54 WBC 8.0 (3.8-10.6) k/uL RBC 5.47 (4.30-5.90) m/uL Hgb 16.0 (13.0-17.5) gm/dL Hct 46.0 (39.0-53.0) % MCV 84.1 (80.0-100.0) fL MCH 29.3 (25.0-35.0) pg MCHC 34.8 (31.0-37.0) g/dL RDW 14.0 (11.5-15.5) % Plt Count 143 L (150-450) k/uL MPV 10.6 Neutrophils % 54 % Lymphocytes % 36 % Monocytes % 6 % Eosinophils % 3 % Basophils % 0 % Neutrophils # 4.3 (1.3-7.7) k/uL Lymphocytes # 2.8 (1.0-4.8) k/uL Monocytes # 0.5 (0-1.0) k/uL Eosinophils # 0.2 (0-0.7) k/uL Basophils # 0.0 (0-0.2) k/uL Sodium 141 (137-145) mmol/L Potassium 3.6 (3.5-5.1) mmol/L Chloride 112 H (98-107) mmol/L Carbon Dioxide 20 L (22-30) mmol/L Anion Gap 9 mmol/L BUN 11 (9-20) mg/dL Creatinine 0.46 L (0.66-1.25) mg/dL Est GFR (CKD-EPI)AfAm >90 (>60 ml/min/1.73 sqM) Est GFR (CKD-EPI)NonAf >90 (>60 ml/min/1.73 sqM) Glucose 117 H (74-99) mg/dL Calcium 9.1 (8.4-10.2) mg/dL Total Bilirubin 0.5 (0.2-1.3) mg/dL AST 27 (17-59) U/L ALT 20 (4-49) U/L Alkaline Phosphatase 101 (38-126) U/L Total Protein 6.9 (6.3-8.2) g/dL Albumin 4.1 (3.5-5.0) g/dL Amylase 53 (30-110) U/L Lipase 78 (23-300) U/L Urine Color Light Yellow Urine Appearance Clear (Clear) Urine pH 7.0 (5.0-8.0) Ur Specific [place] >1.050 H (1.001-1.035) Urine Protein Negative (Negative) Urine Glucose (UA) Negative (Negative) Urine Ketones Negative (Negative) Urine Blood Negative (Negative) Urine Nitrite Negative (Negative) Urine Bilirubin Negative (Negative) Urine Urobilinogen <2.0 (<2.0) mg/dL Ur Leukocyte Esterase Negative (Negative) Disposition Clinical Impression: Abdominal pain Disposition: HOME SELF-CARE Condition: Good Instructions (If sedation given, give patient instructions): Abdominal Pain (ED) Is patient prescribed a controlled substance at d/c from ED?: Yes If prescribed controlled substance>3 days was MAPS reviewed?: Prescribed <3 Days Referrals: Kurtis Meyer DO [Primary Care Provider] - 1-2 days
[2023-01-15 09:32] VITALS: BP 151/86; PULSE 70; RESP 18; TEMP 97.8
== END 2023-01-15 09:32 | disposition home or self-care (01) ==
LOC: EC 02:11
DX: K76.0 Fatty (change of) liver, not elsewhere classified (principal); I10 Essential (primary) hypertension; F41.9 Anxiety disorder, unspecified; F12.90 Cannabis use, unspecified, uncomplicated; F17.200 Nicotine dependence, unspecified, uncomplicated; Z79.899 Other long term (current) drug therapy; Z88.0 Allergy status to penicillin
CPT/HCPCS: 36415; 80053; 82150; 83690; 85025; 81003; 74018; 76705; 74177; 99284; 96374; 96375; 96376; S4990; J2270; J2405; Q9967

== ENCOUNTER 2023-03-22 11:23 | Emergency (ER) | payer MEDICAID ==
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
--- NOTE | 2023-03-22 12:36 | XR ---
EXAMINATION TYPE: XR foot complete RT DATE OF EXAM: 03/22/2023 12:03 PM INDICATION: Patient age:Male; 32 years old; Reason for study: pain; COMPARISON: None TECHNIQUE: The right foot was examined in the AP, oblique, and lateral projections. FINDINGS: No evidence of any acute osseous pathology. No evidence of soft tissue swelling. Joints are preserve d. IMPRESSION: No evidence of acute fracture.
[2023-03-22 13:06] VITALS: BP 143/85; PULSE 54; RESP 16; TEMP 98
== END 2023-03-22 13:25 | disposition home or self-care (01) ==
LOC: EC 11:23
DX: S93.601A Unspecified sprain of right foot, initial encounter (principal); I10 Essential (primary) hypertension; F41.9 Anxiety disorder, unspecified; F17.200 Nicotine dependence, unspecified, uncomplicated; F12.90 Cannabis use, unspecified, uncomplicated; Z79.899 Other long term (current) drug therapy; Z88.0 Allergy status to penicillin; X50.1XXA Overexertion from prolonged static or awkward postures, initial encounter
CPT/HCPCS: 99283

== ENCOUNTER 2023-06-16 22:36 | Emergency (ER) | payer MEDICAID ==
[2023-06-16 22:49] VITALS: BP 167/106; PULSE 95; RESP 18; TEMP 98.2
--- NOTE | 2023-06-16 23:26 | ED ---
Upper Extremity HPI - General Chief Complaint: Extremity Injury, Upper Stated Complaint: Hand injury Time Seen by Provider: 06/16/23 23:09 Source: patient, RN notes reviewed Mode of arrival: ambulatory Limitations: no limitations - History of Present Illness Initial Comments: This is a [id number] 32-year-old male who fell going up steps a few h ours prior to being seen. Patient received The second and third metacarpal phalangeal joint areas. Patient denying any significant pain. He is complaining of some bruising. Patient denies any dist al paresthesias. No distal proximal injuries. Full range of motion. Patient denies any blood dyscrasias. No bleeding disorders. No other injuries. MD Complaint: Injury to:: right, hand - Related Data Home Medications Medication Instructions Recorded Confirmed Ferrous Sulfate [Feosol] 325 mg PO DAILY 06/08/22 08/13/22 Multivitamins, Thera [Multivitamin 1 tab PO DAILY 06/08/22 08/13/22 (formulary)] Propranolol [Inderal] 20 mg PO BID 06/08/22 08/13/22 clonazePAM 2 mg PO TID PRN 06/08/22 08/13/22 lisinopriL [Zestril] 10 mg PO DAILY 06/08/22 08/13/22 SUMAtriptan succinate [Imitrex] 25 mg PO BID PRN 08/13/22 08/13/22 Topiramate [Topamax] 25 mg PO DAILY 08/13/22 08/13/22 Previous Rx's Medication Instructions Recorded oxyCODONE HCL/ACETAMINOPHEN 1 tab PO Q6HR PRN 3 Days #12 tab 01/18/23 [Percocet 5-325 mg] Allergies Allergy/AdvReac Type Severity Reaction Status Date / Time Penicillins Allergy Anaphylaxis Verified 06/16/23 22:46 & Full Body Hives Review of Systems ROS Statement: Those systems with pertinent positive or pertinent negative responses have been documented in the HPI. ROS Other: All systems not noted in ROS Statement are negative. Past Medical History Past Medical History: Hypertension History of Any Multi-Drug Resistant Organisms: None Reported Past Surgical History: Hernia Repair Past Psychological History: ADD/ADHD, Anxiety Smoking Status: Current every day smoker Past Alcohol Use History: Occasional Past Drug Use History: Marijuana General Exam Limitations: no limitations General appearance: alert, in no apparent distress Head exam: Present: atraumatic, normocephalic, normal inspection Eye exam: Present: normal appearance, EOMI ENT exam: Present: normal external ear exam Neck exam: Present: normal inspection Respiratory exam: Present: normal lung sounds bilaterally. Absent: respiratory distress, wheezes, rales, rhonchi, stridor Cardiovascular Exam: Present: regular rate, normal rhythm, normal heart sounds. Absent: systolic murmur, diastolic murmur, rubs, gallop, clicks GI/Abdominal exam: Absent: distended Extremities exam: Present: full ROM, normal capillary refill, other (Patient has ecchymosis located over the second third metacarpophalangeal joint areas. No break in skin integrity. No crepitus. Full range of motion. Full strength with regard to phalanges against resistance in all planes. Full range of motion both actively and passively with regard to phalanges). Absent: tenderness Course Vital Signs 06/16/23 22:46 Temperature 98.2 F Pulse Rate 95 Respiratory 18 Rate Blood Pressure 167/106 O2 Sat by Pulse 98 Oximetry Medical Decision Making - Medical Decision Making Was pt. sent in by a medical professional or institution? @ -no Did you speak to anyone other than the patient for history? @ -Brother Did you review nursing and triage notes? @ -Agree Were old charts reviewed? @ -no Differential Diagnosis? @ -Differential diagnosis includes but not limited to: Contusion, fracture, dislocation, vascular injury, does not appear to be consistent with vascular injury or infectious process. EKG interpreted by me (3pts min.)? @ -[none] X-rays interpreted by me (1pt min.)? @ -Three-view x-ray of the right hand independently interpreted by me shows no evidence of bony pathology or dislocation. There is soft tissue swelling over the affected area. CT interpreted by me (1pt min.)? @ -[none] U/S interpreted by me (1pt. min.)? @ -[none] What testing was considered but not performed? (CT, X-rays, U/S, labs)? Why? @ [CT, X-rays, U/S, labs? Why?] What meds were considered but not given? Why? @ -[none] Did you discuss the management of the patient with other professionals? @ -no Did you reconcile home meds? @ -[none] Was smoking cessation discussed for >3mins.? @ -[none] Was critical care preformed (if so, how long)? @ -[none] Were there social determinants of health that impacted care today? How? (Homelessness, low income, unemployed, alcoholism, drug addiction, transportation, low edu. Level, literacy, decrease access to med. care, long-term, rehab)? @ -none Was there de-escalation of care discussed even if they declined? (Discuss DNR or withdrawal of care, Hospice)? @ -[Discuss DNR or withdrawal of care, Hospice?] What co-morbidities impacted this encounter? (DM, HTN, Smoking, COPD, CAD, Cancer, CVA, Hep., AIDS, mental health diagnosis, sleep apnea, morbid obesity)? @ -Hypertension, anxiety Was patient admitted / discharged? @ -Discharge, stable Undiagnosed new problem with uncertain prognosis? @ -[none] Drug Therapy requiring intensive monitoring for toxicity (Heparin, Nitro, Insulin, Cardizem)? @ -[none] Were any procedures done? @ -[place] wrap application, neurovascular status intact. Diagnosis/symptom? @ -Right hand contusion, initial Acute, or Chronic, or Acute on Chronic? @ -Acute Uncomplicated (without systemic symptoms) or Complicated (systemic symptoms)? @ -Uncomplicated Side effects of treatment? @ -[none] Exacerbation, Progression, or Severe Exacerbation] @ -[no] Poses a threat to life or bodily function? @ -[no] I did discuss the possibility of occult injury, to include occult fracture or soft tissue injury. Note this patient had no bony point tenderness. No snuffbox tenderness. Chico wrap applied, Rice therapy discussed. Patient was told to return to the ER for any signs or symptoms worsen. Told to return immediately if any other problems arise. All questions answered. Treatment plan discussed. Patient in agreement Every effort has been made to ensure accuracy of this dictation. However, due to the limitations of electronic medical records and dictation devices, errors in charting still occur. Disposition Clinical Impression: Contusion of right hand, initial encounter Disposition: HOME SELF-CARE Condition: Good Instructions (If sedation given, give patient instructions): Contusion in Adults (ED) Additional Instructions: Rest, elevation, ice 20 minutes on and off to the affected area 4 times daily. Use [id number] ibuprofen and/or acetaminophen for pain control if needed. Follow-up with your regular physician as directed. Return to the ER immediately if any symptoms worsen, new symptoms arise, or any other problems develop. Is patient prescribed a controlled substance at d/c from ED?: No When asked, does pt state using other controlled substances?: No If prescribed controlled substance>3 days was MAPS reviewed?: No If opioid is for acute pain is fill amount 7 days or less?: No If Rx opioid, was Start Talking consent form obtained?: No Referrals: Kurtis Meyer DO [Primary Care Provider] - 06/23/23 (If needed) Time of Disposition: 23:17
--- NOTE | 2023-06-17 00:43 | XR ---
EXAM: XR Right Hand Complete, 3 or More Views CLINICAL HISTORY: ITS.REASON XR Reason: fall, pain and swelling TECHNIQUE: Frontal, lateral and oblique views of the right hand. COMPARISON: No relevant prior studies available. FINDINGS: Bones/joints: Unremarkable. No acute fracture. No dislocation. Soft tissues: Small amount of soft tissue swelling overlying the dorsal hand at the level of the metacarpophalangeal joints.. No radiopaque foreign body. IMPRESSION: No acute fracture. Soft tissue swelling overlying the dorsal hand at the level of the metacarpophalangeal joints.
== END 2023-06-16 23:30 | disposition home or self-care (01) ==
LOC: EC 22:36
DX: S60.221A Contusion of right hand, initial encounter (principal); I10 Essential (primary) hypertension; F41.9 Anxiety disorder, unspecified; F17.200 Nicotine dependence, unspecified, uncomplicated; F12.90 Cannabis use, unspecified, uncomplicated; Z79.899 Other long term (current) drug therapy; Z88.0 Allergy status to penicillin; W10.9XXA Fall (on) (from) unspecified stairs and steps, initial encounter
CPT/HCPCS: 99283